=== PATIENT | male | born 1995 | race African-American/Black ===

== ENCOUNTER 2017-07-04 15:24 | Emergency (ER) | payer MEDICAID ==
[~2017-07-04] VITALS: Ht 177.8 cm; Wt 82.0 kg
[2017-07-04 15:29] VITALS: BP 135/70
== END 2017-07-04 18:30 | disposition left against medical advice (07) ==
LOC: ER 16:04
DX: Z53.21 Procedure and treatment not carried out due to patient leaving prior to being seen by health care provider (principal)

== ENCOUNTER 2017-07-06 01:30 | Emergency (ER) | payer MEDICAID ==
[~2017-07-06] VITALS: Ht 180.3 cm; Wt 73.0 kg
[2017-07-06 06:40] LABS: CLARITY URINE CLEAR (CLEAR); COLOR URINE YELLOW (YELLOW); KETONES URINE NEGATIVE (NEGATIVE); LEUKOCYTE ESTERASE URINE NEGATIVE (NEGATIVE); NITRITE URINE NEGATIVE (NEGATIVE); OCCULT BLOOD URINE NEGATIVE (NEGATIVE); PH URINE 6.5 (4.5-8.0); PROTEIN URINE NEGATIVE (NEGATIVE); SPECIFIC GRAVITY URINE 1.011 (1.005-1.030); UROBILINOGEN URINE 0.2 E.U./dL (0.2-1.0)
[2017-07-06] MEDS ORDERED: LIDOCAINE HCL 1% 20ML VIAL (Pyxis) INJ INFIL ONE (06:45)
[2017-07-06] MEDS ORDERED: AZITHROMYCIN 500 MG TABLET PO ONE (06:45)
[2017-07-06] MEDS ORDERED: CEFTRIAXONE SODIUM 250 MG/VIAL IM ONE (06:45)
[2017-07-06 07:30] VITALS: BP 130/77
== END 2017-07-06 08:05 | disposition home or self-care (01) ==
LOC: ER 01:30
DX: Z20.2 Contact with and (suspected) exposure to infections with a predominantly sexual mode of transmission (principal); R03.0 Elevated blood-pressure reading, without diagnosis of hypertension; F17.210 Nicotine dependence, cigarettes, uncomplicated
CPT/HCPCS: 81003; 96372; 99283; J0696

== ENCOUNTER 2017-07-14 16:47 | Emergency (ER) | payer OTHER, MEDICAID ==
[~2017-07-14] VITALS: Ht 180.3 cm; Wt 86.0 kg
[2017-07-14 17:45] VITALS: BP 133/53
== END 2017-07-14 22:37 | disposition left against medical advice (07) ==
LOC: ER 17:49
DX: A64 Unspecified sexually transmitted disease (principal); Z53.21 Procedure and treatment not carried out due to patient leaving prior to being seen by health care provider

== ENCOUNTER 2017-07-31 08:42 | Emergency (ER) | payer MEDICAID, OTHER ==
[~2017-07-31] VITALS: Ht 180.3 cm; Wt 68.0 kg
[2017-07-31] MEDS ORDERED: LIDOCAINE HCL 1% 20ML VIAL (Pyxis) INJ INFIL ONE (09:45)
[2017-07-31] MEDS ORDERED: CEFTRIAXONE SODIUM 250 MG/VIAL IM ONE (09:45)
[2017-07-31] MEDS ORDERED: AZITHROMYCIN 500 MG TABLET PO ONE (09:45)
[2017-07-31 10:13] LABS: CLARITY URINE CLEAR (CLEAR); COLOR URINE YELLOW (YELLOW); KETONES URINE NEGATIVE (NEGATIVE); LEUKOCYTE ESTERASE URINE NEGATIVE (NEGATIVE); NITRITE URINE NEGATIVE (NEGATIVE); OCCULT BLOOD URINE NEGATIVE (NEGATIVE); PH URINE 5.5 (4.5-8.0); PROTEIN URINE NEGATIVE (NEGATIVE); SPECIFIC GRAVITY URINE 1.015 (1.005-1.030); UROBILINOGEN URINE 0.2 E.U./dL (0.2-1.0)
[2017-07-31 10:55] VITALS: BP 124/77
== END 2017-07-31 10:57 | disposition home or self-care (01) ==
LOC: ER 08:42
DX: N34.2 Other urethritis (principal); J45.909 Unspecified asthma, uncomplicated; F12.10 Cannabis abuse, uncomplicated
CPT/HCPCS: 81003; 96372; 99283; J0696; J3490; Z7610

== ENCOUNTER 2017-08-05 20:19 | Emergency (ER) | payer OTHER ==
[~2017-08-05] VITALS: Ht 177.8 cm; Wt 81.0 kg
[2017-08-05 20:27] VITALS: BP 145/69
== END 2017-08-06 01:30 | disposition home or self-care (01) ==
LOC: ER 21:39
DX: Z76.89 Persons encountering health services in other specified circumstances (principal); J45.909 Unspecified asthma, uncomplicated; F17.200 Nicotine dependence, unspecified, uncomplicated; Z59.0 Homelessness
CPT/HCPCS: 99281

== ENCOUNTER 2023-07-13 12:01 | Emergency (ER) | payer MEDICAID, OTHER ==
[~2023-07-13] VITALS: Ht 175.3 cm; Wt 82.0 kg
[2023-07-13 12:06] VITALS: BP 115/79; PULSE 86; RESP 16; O2SAT 99
[2023-07-13] MEDS ORDERED: BO1 TP (12:36)
== END 2023-07-13 13:31 | disposition home or self-care (01) ==
LOC: ER 12:01
DX: S30.812A Abrasion of penis, initial encounter (principal); F15.10 Other stimulant abuse, uncomplicated; X58.XXXA Exposure to other specified factors, initial encounter; Y93.89 Activity, other specified; Y92.89 Other specified places as the place of occurrence of the external cause; Y99.8 Other external cause status
CPT/HCPCS: 99282